=== PATIENT | female | born 1965 | race Caucasian/White ===

== ENCOUNTER 2019-04-11 07:54 | Day surgery (SDC) | payer OTHER ==
[2019-04-11] MEDS ORDERED: SODIUM CHLORIDE 0.9% 1000 ML 1,000 ML IV SCH (08:15)
--- NOTE | 2019-04-11 08:21 | History and Physical Report ---
HISTORY OF PRESENT ILLNESS: A 53-year-old female with underlying history of diabetes mellitus type 2, hypertension, hypothyroidism. The patient has been having longstanding symptoms of GERD, which has persisted in spite of treatment as well as associated diarrhea and some associated weight loss. She is being assessed for an EGD and a colonoscopy, which she is willing to do and is to be done today at [facility]. SOCIAL HISTORY: Denies history of smoking or alcohol use. Has had her flu shots. ALLERGIES: No known allergies. MEDICATIONS: Include NovoLog, diarrhea medicines and Tarceva. PHYSICAL EXAMINATION: VITAL SIGNS: She is afebrile, blood pressure 92/43, pulse is 89, height is 5 feet 3 inches, weight is 117. HEENT: Shows no JVD. LUNGS: Shows reduced breath sounds. CARDIOVASCULAR: Normal. ABDOMEN: Soft with some mid abdominal tenderness. Bowel sounds present. EXTREMITIES: No pedal edema. NEUROLOGIC: The patient is otherwise alert and oriented. ASSESSMENT: Diarrhea and gastroesophageal reflux disease symptoms, diabetes mellitus type 2, hypertension, hypothyroidism. PLAN: To do an EGD and a colonoscopy at [facility] on 04/11/2019. JOB# [id number] SALVADOR/NTS
--- NOTE | 2019-04-11 08:55 | Anesthesia Day of Surgery ---
Anesthesia Day of Surgery - Day of Surgery Patient Examined: Yes Patient H&P Reviewed: Yes Patient is NPO: Yes Beta Blockers: Yes
--- NOTE | 2019-04-11 08:55 | Anesthesia Consultation ---
Anesthesia Consult and Med Hx Date of service: 04/11/19 - Airway Anesthetic Teeth Evaluation: Good ROM Head & Neck: Adequate Mental/Hyoid Distance: Adequate Mallampati Class: Class II Intubation Access Assessment: Probably Good - Pre-Operative Health Status ASA Pre-Surgery Classification: ASA3 Proposed Anesthetic Plan: MAC - Cardiovascular System Hx Hypertension: Yes - Gastrointestinal Hx Gastroesophageal Reflux Disease: Yes - Endocrine Hx Liver Disease: Yes (Hyperlipidemia) Hx Insulin Dependent Diabetes: Yes Hx Thyroid Disease: Yes
[2019-04-11] MEDS ORDERED: PROPOFOL 200 MG/20 ML VIAL IV ONE ×2 (08:58→08:59)
--- NOTE | 2019-04-11 09:34 | Procedure Note ---
Date of procedure: 04/11/19 Pre-op diagnosis: GERD/ Diarrhea Post-op diagnosis: other (Mild to Moderate Erosive Esophagitis/ Gastritis/ R/O Celiac Disease/R/O Microscopic Colitis/ Right Colon not visualized because of poor prep/ Suboptimal Prep) Procedure: EGD with Biopsy and Colonoscopy with Biopsy Anesthesia: [facility] Surgeon: FRANCISCO LE Estimated blood loss: minimal Pathology: list Specimen disposition: to lab Condition: stable Disposition: same day (Avoid aspirin and NSAID for 4 days; otherwise resume home medication. Treat with PPI,prn Imodium AD and OTC Probiotic. follow up in 1 to 2 weeks ([phone]).)
--- NOTE | 2019-04-11 09:42 | Operative Report ---
PROCEDURE: Colonoscopy. INDICATIONS: This is a 53-year-old female who has an underlying history of diabetes, hypertension, hypothyroidism, who has been having some GERD symptoms and diarrhea. EGD showed presence of [id number] erosive esophagitis and gastritis. No peptic ulcer disease was noted. Biopsy was done to assess for the severity of the esophagitis for H. pylori and for celiac disease and any associated GERD infestation. Colonoscopy was done after getting informed consent with MAC anesthesia. Initial rectal exam was unremarkable. Instrument was passed through the rectum on to the hepatic flexure. Further insertion was not possible because of suboptimal prep and the right colon was not visualized. The transverse colon, descending colon, and sigmoid showed normal mucosa. The mucosa was washed with copious amounts of water as the prep in this area was also slightly poor. No significant pathology was noted. Random biopsies were done from the transverse colon, the descending colon, the sigmoid to rule out for possible microscopic colitis and the rectum otherwise appeared normal. ASSESSMENT: Diarrhea, rule out microscopic colitis. Poor prep with poor visualization. The right colon not visualized. There was minimal bleeding associated with the procedure. No complications associated with the procedure. PLAN: Plan is to treat the patient with Imodium A-D, encouraged the patient to take probiotics. Also, treat the patient with PPI, have the patient avoid aspirin and aspirin-related products for the next few days and follow up in the office in 1-2 weeks' time. Further treatment adjustment will be according to the biopsy findings. The procedure was done in the GI lab with assistance of the GI lab team, which included Samantha QUILES, Meagan monteiro, and with assistance of anesthesia. JOB# [id number] SALVADOR/ALBERTO
--- NOTE | 2019-04-11 09:49 | Operative Report ---
COLONOSCOPY REPORT INDICATIONS: A 53-year-old female who has been having problems with GERD and diarrhea. EGD showed [id number] erosive esophagitis, gastritis. Biopsy was done to assess for the severity of the erosive esophagitis, gastritis and for any associated celiac disease or giardia infestation. DESCRIPTION OF PROCEDURE: Colonoscopy was done after getting informed consent with MAC anesthesia. Initial rectal exam was unremarkable. Instrument was passed through the rectum and could only be passed up to the hepatic flexure. Visualization of the right colon was not possible because of poor prep. The mucosa was washed with copious amounts of water. No significant pathology was noted in the transverse colon and in the descending colon, there was a small possibly hyperplastic polyp noted that was removed by cold biopsy and the sigmoid and rectum appeared normal. Random biopsies were done to rule out for possible microscopic colitis. The mucosa was again washed with copious amounts of water for better visualization and again the right colon was not visualized because of poor and suboptimal prep. ASSESSMENT: Diarrhea, rule out microscopic colitis, poor prep with poor visualization, right colon not visualized, solitary small descending colon, possibly hyperplastic polyp noted, removed by cold biopsy. There was minimal bleeding from the biopsy and polypectomy sites. No complications associated with the procedure. The patient will be asked to avoid aspirin and aspirin-related products for the next 4 days, otherwise resume home medication. The patient will be treated with PPI because of the EGD findings of erosive esophagitis, gastritis and further treatment adjustment will be according to the biopsy findings. The patient will be asked to follow up in 1-2 weeks' time. The procedure was done in the GI lab with assistance of the GI lab team, which included Samantha QUILES and Meagan monteiro and with assistance of anesthesia. JOB# [id number] SALVADOR/ALBERTO
--- NOTE | 2019-04-11 09:51 | Operative Report ---
PROCEDURE: Esophagogastroduodenoscopy. INDICATIONS: A 53-year-old female who has underlying history of hypothyroidism, diabetes mellitus type 2 and hypertension. She has been having GERD symptoms and diarrhea. EGD was done to assess for the diarrhea and the GERD symptoms. DESCRIPTION OF PROCEDURE: Procedure was done after getting informed consent with MAC anesthesia. Instrument was passed through the hypopharynx into the esophagus, which showed [id number] distal erosive esophagitis. Biopsy was done from the distal esophagus to assess for the severity of the esophagitis. The stomach showed gastritis. No additional pathology was noted in the straight or the retroverted view. Biopsy was done from the gastric antrum, gastric body and angular incisura to rule out for H. pylori and atrophic gastritis. The pylorus was patent. The duodenum in the first and second portion appeared normal. Biopsy was done from the second part to rule out for possible celiac disease and for any associated Giardia infestation. There was minimal bleeding associated with the procedure. No complications associated with the procedure. ASSESSMENT: Gastroesophageal reflux disease symptoms, mild to moderate erosive esophagitis, gastritis. Again, there was minimal bleeding associated with the procedure. No complications associated with the procedure. PLAN: To treat the patient with PPI. Await for the biopsy results. Further treatment adjustment will be according to the biopsy results. The patient will be asked to avoid aspirin and aspirin-related products for the next few days and follow up in the office in 1-2 weeks' time. The procedure was done in the GI lab with assistance of the GI lab team, which included Samantha QUILES; Meagan monteiro and with assistance of anesthesia. JOB# [id number] SALVADOR/ALBERTO
[2019-04-11 10:31] VITALS: BP 122/69
--- NOTE | 2019-04-11 11:26 | Post Anesthesia Evaluation ---
- Post Anesthesia Evaluation Patient Participated: Yes Airway Patent: Yes Stable Respiratory Function: Yes Nausea/Vomiting: No Temp > 96.8F: Yes Pain Manageable: Yes Adequeate Hydration: Yes Anesthesia Complications: No Block Receding Appropriately: Not Applicable Patient on Ventilator: No
== END 2019-04-11 07:55 | disposition home or self-care (01) ==
LOC: GIO 07:54
DX: R19.7 Diarrhea, unspecified (principal); R63.4 Abnormal weight loss; K21.0 Gastro-esophageal reflux disease with esophagitis; K31.89 Other diseases of stomach and duodenum; E03.9 Hypothyroidism, unspecified; I10 Essential (primary) hypertension; E11.42 Type 2 diabetes mellitus with diabetic polyneuropathy; G62.9 Polyneuropathy, unspecified; Z79.4 Long term (current) use of insulin; Z79.899 Other long term (current) drug therapy
CPT/HCPCS: 43239; 45380; 82962; 88305; 88342; J2704; J7030